=== PATIENT | female | born 2000 | race African-American/Black ===

== ENCOUNTER 2022-08-20 13:40 | Emergency (ER) | payer BC, SELFPAY ==
[2022-08-20 14:10] VITALS: BP 122/63; PULSE 69; RESP 16; TEMP 36.5; O2SAT 100
[2022-08-20 14:11] VITALS: BP 122/63; PULSE 69; RESP 16; TEMP 36.5; O2SAT 100
--- NOTE | 2022-08-20 15:05 | ED.GENADULT ---
HPI - General Adult General Chief complaint: Upper Respiratory Infection Stated complaint: pt wants covid test, sore throat, congestion Source: patient Mode of arrival: ambulatory Limitations: no limitations History of Present Illness HPI narrative: Patient presents requesting repeat COVID test. She indicates she tested positive for COVID 3 days ago at her school. She has experienced a fever, sore throat and cough for approximately 1 week. No chills, nausea, vomiting, diarrhea, shortness of breath. She is not currently on Paxlovid. She had COVID back in 2020 as well. She does not smoke. No recent sick contacts to her knowledge. She is requesting a note for her employer and school. She does feel like her symptoms are improving. No additional complaints or concerns. Related Data Home Medications Medication Instructions Recorded Confirmed No Home Medications 08/20/22 08/20/22 Allergies Allergy/AdvReac Type Severity Reaction Status Date / Time amoxicillin Allergy Rash Verified 08/20/22 14:10 Penicillins Allergy Rash Verified 08/20/22 14:10 Review of Systems Review of Systems: CONSTITUTIONAL: Reports fever. Denies chills or sweats EYES: Denies visual changes, redness, or discharge. ENT: Reports sore throat. Denies rhinorrhea, congestion, or otalgia. CARDIOVASCULAR: Denies chest pain, palpitations, or edema. RESPIRATORY: Reports cough. Denies SOB. GASTROINTESTINAL: Denies abdominal pain, nausea, vomiting, or diarrhea. GENITOURINARY: Denies dysuria or hematuria. SKIN: Denies rash or itching. MUSCULOSKELETAL: Denies back pain, joint pain, or myalgia. NEUROLOGIC: Denies headache, numbness, dizziness, or weakness. PSYCHIATRIC: Denies anxiety or depression. [facility] Past Medical History Medical History No pertinent past medical history Surgical History Surgical History No pertinent past surgical history Family History Family History Mother Family history non-contributory Social History Social History Smoking status: Never smoker Alcohol intake: never Substance use: never Gender identity (if verbalized by the patient): Female Exam Narrative: GENERAL: GENERAL: Well-appearing, well-nourished, and in no acute distress. HEAD: Normocephalic, atraumatic. EYES: PERRLA and EOMI. ENT: Nares clear, no rhinorrhea or epistaxis. Mucous membranes moist. Oropharynx without tonsillar hypertrophy exudate or other lesions. Bilateral TMs pearly [place] nonbulging NECK: Supple. No adenopathy or masses. No carotid bruits or JVD CHEST: Clear to auscultation. No respiratory distress. No wheezes rales or rhonchi HEART: Regular rate and rhythm. No murmur heard. Normal peripheral pulses. ABDOMEN: Soft, nontender, nondistended, normal active bowel sounds. EXTREMITIES: Normal range of motion. No edema. SKIN: Warm, dry, no rash. NEURO: No focal deficits. Alert and oriented x3. PSYCH: Normal mood and affect. Course Course Emergency Course: This is a 21-year-old female who presented requesting a repeat COVID test. Test was positive 3 days ago. Test here negative. She appears quite well clinically. Saturations are normal. Advised she complete quarantine as directed. Increase hydration. OTC agents for symptom management. Follow up outpatient for further evaluation and treatment and go to the ER for worsening symptoms. Pt in agreement with plan of care. Level of Care: Express Care Visit Vital Signs Vital signs: Vital Signs Temperature 36.5 C 08/20/22 14:10 Pulse Rate 69 08/20/22 14:10 Respiratory Rate 16 08/20/22 14:10 Blood Pressure 122/63 08/20/22 14:10 Pulse Oximetry 100 08/20/22 14:10 Temperature 36.5 C 08/20/22 14:11 Pulse Rate 69 08/20/22
== END 2022-08-20 15:08 | disposition home or self-care (01) ==
PROVIDERS: Emergency Provider Nurse Practitioner
DX: J02.9 Acute pharyngitis, unspecified (principal); R09.89 Other specified symptoms and signs involving the circulatory and respiratory systems; Z86.16 Personal history of COVID-19; Z20.822 Contact with and (suspected) exposure to COVID-19
CPT/HCPCS: 87426; 99213; C9803; G0463

== ENCOUNTER 2022-10-02 16:35 | Emergency (ER) | payer BC, SELFPAY ==
[2022-10-02 17:03] VITALS: BP 124/69; PULSE 93; RESP 101; TEMP 36.5; O2SAT 100
[2022-10-02 17:55] LABS: Influenza A QL RT-PCR Negative (Negative); Influenza B QL RT-PCR Negative (Negative); SARS-CoV-2 RNA PCR Negative
[2022-10-02 19:54] VITALS: O2SAT 99
[2022-10-02 19:55] VITALS: BP 116/65; PULSE 80; RESP 16; TEMP 36.4; O2SAT 99
--- NOTE | 2022-10-02 19:57 | ED.URI ---
HPI - URI/Sore Throat General Chief Complaint: Upper Respiratory Infection Stated Complaint: cough Time Seen by Provider: 10/02/22 19:28 Related Data Allergies Allergy/AdvReac Type Severity Reaction Status Date / Time amoxicillin Allergy Rash Verified 10/02/22 19:53 Penicillins Allergy Rash Verified 10/02/22 19:53 [facility] Past Medical History Medical History No pertinent past medical history Surgical History Surgical History No pertinent past surgical history Family History Family History Mother Family history non-contributory Social History Social History Smoking status: Never smoker Alcohol intake: never Substance use: never Gender identity (if verbalized by the patient): Female Course Vital Signs Vital signs: Vital Signs Temperature 97.7 F 10/02/22 17:03 Pulse Rate 93 10/02/22 17:03 Respiratory Rate 101 H 10/02/22 17:03 Blood Pressure 124/69 10/02/22 17:03 Pulse Oximetry 100 10/02/22 17:03 Oxygen Delivery Room Air 10/02/22 17:03 Temperature 97.6 F 10/02/22 19:55 Pulse Rate 80 10/02/22 19:55 Respiratory Rate 16 10/02/22 19:55 Blood Pressure 116/65 10/02/22 19:55 Pulse Oximetry 99 10/02/22 19:55 Oxygen Delivery Room Air 10/02/22 19:54 MDM - URI/Sore Throat Lab Data Labs: Lab Results 10/02/22 Range/Units 17:06 Influenza A (RT-PCR) Negative (Negative) Influenza B (RT-PCR) Negative (Negative) SARS-CoV-2 RNA (RT-PCR) Negative Discharge Plan Discharge Clinical Impression: Upper respiratory infection Patient Disposition: Home, Self-Care Condition: Stable Instructions: Upper Respiratory Infection (ED) Additional Instructions: Return the ER if you have fever over 100.4 ?F, you cannot breathe, you cannot keep down food or water, you have additional concerns. Prescriptions: New pseudoephedrine-guaifenesin [Mucinex D] 60-600 mg tablet extended release 12 hr 1 tablet PO BID PRN (Reason: cold symptoms) Qty: 10 0RF Follow-up/Referrals: PHYSICIAN,[facility] [Primary Care Provider] - Kathreine Davidson DO [Physician] - 1 Week
== END 2022-10-02 20:14 | disposition home or self-care (01) ==
LOC: ANHED 20:02
PROVIDERS: Emergency Medicine; Emergency Provider Emergency Medicine
DX: J06.9 Acute upper respiratory infection, unspecified (principal); Z20.822 Contact with and (suspected) exposure to COVID-19
CPT/HCPCS: 87636; 99283

== ENCOUNTER 2022-12-03 19:08 | Emergency (ER) | payer BC, SELFPAY ==
--- NOTE | ~2022-12-03 | XR_ITS ---
EXAM: XR knee LT 3V DATE: 12/03/2022 20:04 HISTORY: Anterior left knee pain x 2days ago after working out. . COMPARISON: None available. FINDINGS: Normal mineralization. No fracture or dislocation. No lytic or blastic lesion. Joint space s are maintained. No erosion or periosteal change. Soft tissues within normal limits. Small volume arleth int fluid. IMPRESSION: No acute osseous finding in the left knee. Reviewed, dictated and finalized at location K.
[2022-12-03 19:34] VITALS: BP 129/71; PULSE 85; RESP 18; TEMP 36.6; O2SAT 100
--- NOTE | 2022-12-03 22:01 | ED.GENADULT ---
HPI - General Adult General Chief complaint: Extremity Injury, Lower <Derrick Stone PA-C - Last Filed: 12/04/22 02:38> Stated complaint: left knee <Derrick Stone PA-C - Last Filed: 12/04/22 02:38> Time Seen by Provider: 12/03/22 21:22 <Derrick Stone PA-C - Last Filed: 12/04/22 02:38> Source: patient <Derrick Stone PA-C - Last Filed: 12/04/22 02:38> Mode of arrival: ambulatory <BRANDIE Ramsey Last Filed: 12/04/22 02:38> Limitations: no limitations <Derrick Stone PA-C - Last Filed: 12/04/22 02:38> History of Present Illness HPI narrative: This is a 22-year-old female presents the ED with chief complaint of left knee pain x3 days. Onset after working out in the gym. No known specific trauma or injury to the knee. Not taking any pain medications at home. States she is concerned for possible ACL tear. She reports swelling to the left knee. Denies warmth, fevers, erythema. She is otherwise healthy with no past medical history. <Derrick Stone PA-C - Last Filed: 12/04/22 02:38> Related Data Allergies/adverse reactions: Allergies Allergy/AdvReac Type Severity Reaction Status Date / Time amoxicillin Allergy Rash Verified 12/03/22 19:08 Penicillins Allergy Rash Verified 12/03/22 19:08 <Drerick Stone PA-C - Last Filed: 12/04/22 02:38> Review of Systems Review of Systems: CONSTITUTIONAL: Denies fever, chills, or sweats.. SKIN: Denies rash or itching. Denies bruising. MUSCULOSKELETAL: Endorses left knee pain. Denies back pain, other joint pain, or myalgia. NEUROLOGIC: Denies headache, numbness, dizziness, or weakness. PSYCHIATRIC: Denies anxiety or depression. <Derrick Stone PA-C - Last Filed: 12/04/22 02:38> [facility] Past Medical History Medical History: Medical History No pertinent past medical history <Derrick Stone PA-C - Last Filed: 12/04/22 02:38> Surgical History Surgical History: Surgical History No pertinent past surgical history <Derrick Stone PA-C - Last Filed: 12/04/22 02:38> Family History Family History: Family History Mother Family history non-contributory <Derrick Stone PA-C - Last Filed: 12/04/22 02:38> Social History Social History: Social History Smoking status: Never smoker Alcohol intake: never Substance use: never Living arrangements: dorm student housing Occupation/Education: student Gender identity (if verbalized by the patient): Female <Derrick Stone PA-C - Last Filed: 12/04/22 02:38> Exam Narrative: GENERAL: Well-appearing, well-nourished, and in no acute distress. HEAD: Normocephalic, atraumatic. EXTREMITIES: Left knee: Mild tenderness to the lateral aspect of the left knee following the quadriceps distribution. Full active and passive range of motion. No edema. Right knee: Benign SKIN: Warm, dry, no rash. No overlying skin changes. Soft compartments. NEURO: Alert and oriented x3. No focal deficits. Neurovascularly intact distally PSYCH: Normal mood and affect. <Derrick Stone PA-C - Last Filed: 12/04/22 02:38> Course [employer]/PA Physician Supervision This is a was performed by both a physician and an APC. I performed all aspects of the MDM as documented w/ the following additions: 22-year-old presenting with muscle pain after working out at the gym. Consistent with muscle strain. Patient was discharged.All questions answered. Patient in agreement w/ disposition. <Jer Pemberton MD - Last Filed: 12/05/22 21:18> Vital Signs Vital signs: Vital Signs Temperature 97.8 F 03/19/23 19:34 Pulse Rate 85 12/03/22 19:34 Respiratory Rate 18 12/03/22 19:34 Blood Pressure 129/71 12/03/22 19:34 Pulse Oximetry 100 12/03
== END 2022-12-03 23:26 | disposition home or self-care (01) ==
PROVIDERS: Emergency Provider Physician Assistant
DX: M25.562 Pain in left knee (principal)
CPT/HCPCS: 73562; 99283